=== PATIENT | male | born 1995 | race Two or more races ===

== ENCOUNTER 2024-07-06 18:01 | Emergency (ER) | payer MEDICAID, SELFPAY ==
[2024-07-06 18:02] VITALS: BMI 27.8
[2024-07-06 18:28] VITALS: BP 145/92; PULSE 78; RESP 18; TEMP 37.2; O2SAT 98
--- NOTE | 2024-07-06 18:50 | XR_ITS ---
Examination: CT brain head without contrast. 2-D sagittal coronal reconstructions Date and time of exam:July 06, 2024 1946 hrs. Indications: Headaches nausea vomiting shakiness today CTDI: vol (mGy):52.4 DLP: (mGycm):1116 Technique: Multiple CT axial sections of the brain have been obtained, 5 mm slice thickness. Contrast has not been administered. 2-D sagittal, coronal reconstructions have been obtained Low dose protocols were performed. One or more of the following dose reduction techniques were used; automated exposure control, adjustment of the mA and/or KV according to patient size, use of iterative reconstruction technique. Findings: No significant ventricular enlargement. Intra-axial or extra-axial hemorrhage density is not seen. No mass effect or midline shift Basal cisterns are not remarkable. Fourth ventricle is midline. Cranial vault intact. Impression: Negative for acute hemorrhage, mass effect or midline shift Advise clinical correlation follow-up accordingly
--- NOTE | 2024-07-06 18:51 | PD.EDRME ---
Rapid Medical Screening Exam [facility] Arrival date/time: 07/06/24 18:01 28M with history of alcohol abuse presents to ED with 1 day of ALEX, N/V, and mild/vague ab pain. Chief Complaint: Alcohol Vital signs: Vital Signs Temperature 98.9 F 07/06/24 18:28 Pulse Rate 78 07/06/24 18:28 Respiratory Rate 18 07/06/24 18:28 Blood Pressure 145/92 H 07/06/24 18:28 Pulse Oximetry (%) 98 07/06/24 18:28 Oxygen Delivery Method Room Air 07/06/24 18:28
[2024-07-06] MEDS: DIAZEPAM 5 MG TABLET 10 MG PO (18:56)
[2024-07-06] MEDS: METOCLOPRAMIDE 5 MG TABLET 10 MG PO (18:56)
[2024-07-06 19:14] LABS: Collection Type, Urine Clean Catch
[2024-07-06 19:22] LABS: Basophils # (Auto) 0.1 Thou/mm3 (0.0-0.2); Basophils % (Auto) 1 % (0-2.5); Eosinophils # (Auto) 0.6 Thou/mm3 (0.0-0.5); Eosinophils % (Auto) 6 % (0-10); Hematocrit 44.5 % (41.0-53.0); Hemoglobin 15.5 g/dL (13.5-16.0); Immature Granulocytes % (Auto) 0 % (0-0); Immature Granulocytes Auto 0.04 Thou/mm3 (0.00-0.00); Lymphocytes # (Auto) 1.5 Thou/mm3 (1.0-4.8); Lymphocytes % (Auto) 15 % (10-50); Mean Corpuscular HGB Conc 34.8 g/dl (31.0-37.0); Mean Corpuscular Hemoglobin 31.1 pg (25.0-35.0); Mean Corpuscular Volume 89 fL (80-100); Monocytes # (Auto) 0.9 Thou/mm3 (0.0-0.8); Monocytes % (Auto) 9 % (0-12); Neutrophils # (Auto) 6.6 Thou/mm3 (1.8-7.7); Neutrophils % (Auto) 69 % (37-80); Nucleated Red Blood Cell % 0 /100 WBC (0); Platelet Count 284 Thou/mm3 (140-440); RDW Standard Deviation 44.2 fL (35.1-43.9); Red Blood Count 4.98 Miln/mm3 (4.50-5.90); White Blood Count 9.6 Thou/mm3 (3.8-10.6)
[2024-07-06 19:29] LABS: Bacteria,Urine Rare; Bilirubin,Urine Negative (Negative); Blood,Urine Negative (Negative); Budding Yeast,Urine Present; Clarity,Urine Turbid (Clear/Hazy); Color,Urine Yellow (Lt Yel-Yel); Glucose, Urine Negative (Negative); Ketones,Urine Negative (Negative); Leukocyte Esterase,Urine Negative (Negative); Nitrite,Urine Negative (Negative); Protein,Urine Trace (Neg - Trace); RBC,Urine 6 /hpf (0-3); Squamous Epithelial Cell,Urine < 1 /hpf (0-5); WBC,Urine 5 /hpf (0-5)
[2024-07-06 19:34] LABS: Sperm,Urine Present
[2024-07-06 19:50] LABS: Alanine Aminotransferase 370 U/L (10-49); Albumin, Serum 5.1 gm/dL (3.5-5.0); Albumin/Globulin Ratio 1.8 (1.2-2.2); Alkaline Phosphatase 127 U/L (46-116); Anion Gap 9 (7-16); Aspartate Amino Transferase 138 U/L (0-34); BUN/Creatinine Ratio 9 Ratio (12-20); Bilirubin,Total 0.6 mg/dL (0.3-1.2); Blood Urea Nitrogen 9 mg/dL (9-23); Calcium 9.7 mg/dL (8.3-10.6); Calcium (Corrected) 9.7 mg/dL (8.5-10.1); Carbon Dioxide 27.2 mMol/L (20.0-31.0); Chloride 103 mMol/L (98-107); Estimated Creatinine Clearance 126.7 mL/min (>60); Globulin 2.9 gm/dL (2.3-3.5); Glucose 111 mg/dL (74-106); Lipase 34 U/L (12-53); Osmolality,Calculated 277 (275-295); Potassium 3.9 mMol/L (3.4-5.1); Sodium 139 mMol/L (136-145); eGFR > 60 See Note
[2024-07-06 19:51] LABS: Alcohol, Blood Medical < 3.0 mg/dL (0-10.0)
[2024-07-06 20:30] LABS: Amphetamine/Methamp Scrn,U Negative (Negative); Barbiturate Screen,Urine Negative (Negative); Benzodiazepines Screen,Urine Negative (Negative); Benzoylecgonine Screen, Ur Negative (Negative); Fentanyl Screen,Urine Negative (Negative); Opiate Screen,Urine Negative (Negative); THC Screen,Urine Positive (Negative)
--- NOTE | 2024-07-06 21:50 | PC.NURSE ---
called for pt from lobby/outside, no answerx1 @ [id number]
--- NOTE | 2024-07-06 22:10 | PC.NURSE ---
CALLED PT IN ER AND ER LOBBY AND NO ANSWER AT THIS TIME
--- NOTE | 2024-07-06 22:54 | PC.NURSE ---
CALLED PT IN ER LOBBY AND OUTSIDE OF ER AND NO ANSWER TIME.
== END 2024-07-06 22:56 | disposition left against medical advice (07) ==
PROVIDERS: Physician Assistant; Emergency Provider Emergency Medicine
DX: R51.9 Headache, unspecified (principal); R11.2 Nausea with vomiting, unspecified; R10.9 Unspecified abdominal pain; Z53.29 Procedure and treatment not carried out because of patient's decision for other reasons
CPT/HCPCS: 36415; 70450; 80053; 80307; 80320; 81001; 83690; 85025; 99281; A9270; G0480

== ENCOUNTER 2024-09-08 05:29 | Inpatient (IN) | payer MEDICAID, SELFPAY ==
[2024-09-08] VITALS (13 sets, daily range): BP systolic 134–167; BP diastolic 64–107; PULSE 75–136; RESP 16–24; TEMP 36.8–37.5; O2SAT 97–100; BMI 29.2
[2024-09-08 06:34] LABS: Basophils # (Auto) 0.2 Thou/mm3 (0.0-0.2); Basophils % (Auto) 1 % (0-2.5); Eosinophils # (Auto) 0.3 Thou/mm3 (0.0-0.5); Eosinophils % (Auto) 2 % (0-10); Hematocrit 48.2 % (41.0-53.0); Hemoglobin 16.9 g/dL (13.5-16.0); Immature Granulocytes % (Auto) 0 % (0-0); Immature Granulocytes Auto 0.06 Thou/mm3 (0.00-0.00); Lymphocytes # (Auto) 4.9 Thou/mm3 (1.0-4.8); Lymphocytes % (Auto) 33 % (10-50); Mean Corpuscular HGB Conc 35.1 g/dl (31.0-37.0); Mean Corpuscular Hemoglobin 31.2 pg (25.0-35.0); Mean Corpuscular Volume 89 fL (80-100); Monocytes # (Auto) 1.3 Thou/mm3 (0.0-0.8); Monocytes % (Auto) 9 % (0-12); Neutrophils # (Auto) 8.2 Thou/mm3 (1.8-7.7); Neutrophils % (Auto) 54 % (37-80); Nucleated Red Blood Cell % 0 /100 WBC (0); Platelet Count 323 Thou/mm3 (140-440); RDW Standard Deviation 44.2 fL (35.1-43.9); Red Blood Count 5.41 Miln/mm3 (4.50-5.90)
[2024-09-08] MEDS: LORazepam 2 MG/ML VIAL IVP (06:41)
[2024-09-08 06:52] LABS: Alanine Aminotransferase 312 U/L (10-49); Albumin, Serum 5.3 gm/dL (3.5-5.0); Albumin/Globulin Ratio 1.7 (1.2-2.2); Alkaline Phosphatase 126 U/L (46-116); Anion Gap 16 (7-16); Aspartate Amino Transferase 156 U/L (0-34); BUN/Creatinine Ratio 9 Ratio (12-20); Bilirubin,Total 0.5 mg/dL (0.3-1.2); Blood Urea Nitrogen 10 mg/dL (9-23); Calcium 10.4 mg/dL (8.3-10.6); Calcium (Corrected) 10.4 mg/dL (8.5-10.1); Carbon Dioxide 22.2 mMol/L (20.0-31.0); Chloride 104 mMol/L (98-107); Creatinine (Component) 1.1 mg/dL (0.6-1.3); Estimated Creatinine Clearance 116.7 mL/min (>60); Globulin 3.1 gm/dL (2.3-3.5); Glucose 144 mg/dL (74-106); Osmolality,Calculated 285 (275-295); Sodium 142 mMol/L (136-145); Total Protein 8.4 gm/dL (5.7-8.2); eGFR > 60 See Note
[2024-09-08] MEDS: SODIUM CHLORIDE 0.9% 1000 ML 1,000 ML 999 ML IV (06:57)
--- NOTE | 2024-09-08 07:09 | XR_ITS ---
Examination: AP chest single view Technique one AP portable upright chest single view Exam date and time: September 08, 2024 0715 hrs. Comparison July 26, 2022 Indications: Dyspnea today. Findings: Normal heart size. No pneumonia or pulmonary edema. The osseous structures are intact Impression: No active disease
--- NOTE | 2024-09-08 07:23 | EDNOTE_ITS ---
ED Anxiety RME/HPI General Chief Complaint: Anxiety Stated Complaint: ALCOHOL WITHDRAWAL Time Seen by Provider: 09/08/24 06:18 Arrival date/time: 09/08/24 05:29 RME / HPI RME / HPI narrative: DR. UREÑA MAIN ED EVALUATION: 29 year old male presents to the Emergency Department [facility] from home with complaints of anxiety and bilateral hand cramping. Patient thinks he was having alcohol withdrawals. He usually drinks 6-8 beers a day and report last drink 36 hours ago; however then he did mention taking whiskey last night to the nurse. Denies any known cardiac, kidney, liver, lung problems. No previous abdominal surgeries. Related Data Previous Rx's ?Medication ?Instructions ?Recorded aluminum-mag hydroxide-simethicone 10 ml PO TID PRN in digestion #355 09/13/22 400 mg-400 mg-40 mg/5 mL oral susp mL (Maalox Maximum Strength) famotidine 20 mg tablet 20 mg PO QDAY #30 tabs 09/13 pantoprazole 40 mg tablet,delayed 40 mg PO QDAY #30 ta bs 08/22/23 release (Protonix) chlordiazepoxide HCl 10 mg capsule 10 mg PO Q8H PRN Al cohol withdraw 10/16/23 #30 caps Allergies Allergy/AdvReac Type Severity Reaction Status Date / Time No Known Allergies Allergy Verified 07/06/24 18:04 Review of Systems Review of Systems Systems Reviewed: All systems reviewed, normal except as documented Narrative Review of Systems: GEN: No fever, no chills, no weight loss EYES: No discharge, no visual changes, no pain HEENT: No ear pain, no congestion, no sore throat PULM: No shortness of breath, no cough, no congestion CV: No chest pain, no dyspnea on exertion, no palpitations GI: No nausea, no vomiting, no diarrhea, no pain, no constipation : No frequency, no urgency and no dysuria MUSC/SKEL: + bilateral hand cramping (see HPI), no back pain SKIN: No rash PSYCH: No hallucinations, no depression, anxiety (see HPI) HEME/LYMPH: No easy bleeding or bruising tendencies NEURO: No weakness, no headache Past Medical History Social History SMOKING STATUS: Never smoker SECOND HAND EXPOSURE: No SUBSTANCE USE: does not use ALCOHOL: Current ALCOHOL FREQUENCY: 3 or More Drinks per Day ED Exam Narrative Physical exam: GENERAL APPEARANCE: alert and oriented x 4, well-developed, well-nourished, no acute distress, diaphoretic, tremulous, and appears anxious VITALS: All vitals were reviewed and the pulse ox is 100% on room air, which is normal according to my interpretation. HEENT: Normocephalic, atraumatic; pupils equal, round, reactive to light; EOMI; mucous membranes pink, moist; oropharynx clear NECK: Supple LUNGS: CTABL; no wheezes, no rales, no rhonchi HEART: Heart is tachycardic at 110; regular rhythm; normal S1, S2; no murmurs ABDOMEN: non distended; normal BS; soft, no tenderness, no guarding, no rebound; no masses, no organomegaly, no hernia BACK: no CVA tenderness EXTREMITIES: atraumatic; no edema NEUROLOGIC: tremulous; awake; alert and oriented x4; cranial nerves II-XII grossly intact; no focal sensory or motor deficits PSYCHIATRIC: appropriate mood and affect SKIN: warm, dry, normal color; no rashes Course Quality Measures none Orders Category Date Time Status [facility] N[facility] Specialist NOW Care 09/08/24 06:21 Active XR chest 1V portable Stat Exams 09/08/24 07:09 Taken CBC Stat Lab 09/08/24 06:30 Completed CMP [Comprehensive Metabolic Panel] Stat Lab 09/08/24 06:30 Results Drug Screen,Urine Stat Lab 09/08/24 06:20 Ordered Magnesium Stat Lab 09/08/24 06:30 Results UA, C/S IF [Urinalysis, C/S if Indicated] Stat Lab 09/08/24 06:20 Ordered LORazepam [Ativan Inj] Med 09/08/24 06:21 Discontinued 2 mg IVP X1 ONE Sodium Chloride 0.9% 1000 ml [Ns] 1,000 ml Med 09/08/24 06:53 Active IV 999 mls/hr Vital Signs Vital signs: Vital Signs Pulse Rate 121 H 09/08/24 05:36 Respiratory Rate 24 H 09/08/24 05:36 Blood Pressure 134/107 H 09/08/24 05:36 Pulse Oximetry (%) 100 09/08/24 05:36 Oxygen Delivery Method Room Air 09/08/24 05:36 Anxiety MDM Narrative MDM Narrative: I, Phyllis Zhang, am scribing for and in the presence of Dr. Ureña. Patient data External records reviewed:: [facility] previous records (Reviewed last ED visit dated 04/21/24, discharged with the following: Alcohol abuse) and EMS form Clinical information provided by:: patient and EMS Social determinants that could affect healthcare access:: alcohol use Patient has the following chronic illnesses:: Denies any PMHx, surgeries, daily medications, or known allergies. How is presenting disease/condition affected by chronic disease/condition?: no chronic disease Evaluation data The following diagnostics were reviewed and interpreted by me:: lab results and radiology exam(s) Lab and/or radiology exams considered but not ordered:: none Interpretation Summary: Procedure(s): XR chest 1V portable Accession Number(s): [id number] cc: Stanley Villanueva MD; Chantale Ureña MD~ Examination: AP chest single view Technique one AP portable upright chest single view Exam date and time: September 08, 2024 0715 hrs. Comparison July 26, 2022 Indications: Dyspnea today. Findings: Normal heart size. No pneumonia or pulmonary edema. The osseous structures are intact Impression: No active disease Dictated By: Stanley Villanueva MD Medications / Prescriptions Medications or Prescriptions considered but not ordered:: none Medication administrations:: Medication Administration History Sodium Chloride (Ns) 1,000 mls @ 999 mls/hr IV .Q1H1M ONE Stop: 09/08/24 07:53 Last Admin: 09/08/24 06:57 Dose: 999 mls/hr Documented By: KG Discontinued Medications Lorazepam (Lorazepam 2 Mg/Ml Vial) 2 mg IVP X1 ONE Stop: 09/08/24 06:22 Last Admin: 09/08/24 06:41 Dose: 2 mg Documented By: KG Consultations Consultation(s) initiated? (list below): Yes Consultation #1 (Physician, Specialty, Details): Discussed test HPI, PMHx, lab, radiology results and/or management with hospitalist. Will admit for further evaluation and management. Accepts patient for admission. Time: 08:30 Diagnosis Differential diagnosis anxiety: panic disorder, acute anxiety and other (alcohol abuse, alcohol withdrawals) Most likely diagnosis given after review of the tests above:: Alcohol withdrawal Admission Indicated Admission indicated?: indicated Admission Request Was there a request for admission?: Yes Admission Attestation Admission request attestation: Discussed case with [] from Hospitalist service regarding admission. Discussed patients ED course, exam findings, labs, and radiology results. The Hospitalist [agrees,declines] to accept the patient for admission. Disposition Plan Disposition Plan: Admit Discharge Plan Plan Patient Disposition: Admit Acute Care w/in Hospital Problem List Clinical Impression: Alcohol withdrawal
[2024-09-08 07:27] LABS: Magnesium 1.9 mg/dL (1.6-2.6)
[2024-09-08] MEDS: THIAMINE 100 MG TABLET PO ×2 (10:30→21:03)
[2024-09-08] MEDS: LORazepam 0.5 MG TABLET 1 MG PO ×2 (10:31→18:52)
[2024-09-08] MEDS: FOLIC ACID 1 MG TABLET PO ×2 (10:31→21:03)
--- NOTE | 2024-09-08 11:32 | XR_ITS ---
Examination: Abdomen sonogram, complete Date and time of exam: September 08, 2024 1308 hours INDICATIONS: Elevated liver function tests on laboratory examination today. Technique: Multiple real-time grayscale transabdominal sonographic images of the abdomen have been obtained. Findings: Normal gallbladder Normal common bile duct 0.4 cm Pancreatic head 1.9 cm Aorta not enlarged Liver 17.2 cm fatty infiltration no focal liver lesions Normal hepatopedal portal venous flow Patent IVC Right kidney 10.1 x 5.8 x 7.0 cm renal cortex 1.6 cm Left kidney 10.9 x 5.4 x 5.4 cm renal cortex 1.7 cm Mild renal parenchymal scar formation Spleen 12.9 cm IMPRESSION: Normal gallbladder Mild hepatomegaly fatty liver
[2024-09-08 12:18] LABS: Collection Type, Urine Clean Catch; Squamous Epithelial Cell,Urine 0 /hpf (0-5)
[2024-09-08 12:27] LABS: Bilirubin,Urine Negative (Negative); Blood,Urine Negative (Negative); Clarity,Urine Clear (Clear/Hazy); Color,Urine Yellow (Lt Yel-Yel); Culture Indicated,Urine Not Indicated; Glucose, Urine Negative (Negative); Ketones,Urine 1+ (Negative); Leukocyte Esterase,Urine Negative (Negative); Nitrite,Urine Negative (Negative); PH,Urine 8.5 (5.0-7.0); Protein,Urine 1+ (Neg - Trace); RBC,Urine 2 /hpf (0-3); Specific Gravity,Urine 1.026 (1.001-1.035); WBC,Urine 1 /hpf (0-5)
[2024-09-08 12:36] LABS: Amphetamine/Methamp Scrn,U Negative (Negative); Barbiturate Screen,Urine Negative (Negative); Benzodiazepines Screen,Urine Negative (Negative); Benzoylecgonine Screen, Ur Negative (Negative); Fentanyl Screen,Urine Negative (Negative); Opiate Screen,Urine Negative (Negative); THC Screen,Urine Positive (Negative)
[2024-09-08 12:36] LABS: Hepatitis A Antibody IgM Non Reactive (Non React); Hepatitis B Core Antibody IgM Non Reactive (Non React); Hepatitis B Surface Antigen Non Reactive (Non React); Hepatitis C Antibody Non Reactive (Non React)
[2024-09-08] MEDS: ONDANSETRON INJ 2 MG/ML INJ 2 ML 4 MG IV ×2 (12:48→18:56)
[2024-09-08 13:06] LABS: Alcohol, Urine Negative (Negative)
--- NOTE | 2024-09-08 13:53 | ESHP_ITS ---
<Statement entered by Jose Manuel Moraes MD - 09/09/24 14:53> I discussed with and supervised the pharmacy grad intern physician involved in the care of this patient. Patient assessment and plan was discussed with entire medicine team, including my attending. I agree with the assessment and plan as documented by pharmacy grad intern doctor. Patient care was discussed with my attending physician Dr.Bishwakarma Jose Manuel Moraes, PGY-2 Documentation for date of: 09/08/24 HPI History of Present Illness Chief complaint: Shaking, sweating and vomiting History of present illness: 29-year-old male with past medical history of alcohol use disorder presented to the ED on 09/08 after he started developing shakiness, sweating and bilious vomiting. Per patient, he has been drinking excessively for the past 3 years; moreover, roughly 6-8 beers daily. Patient's last drink was on 09/07 when he had to 500 mL bottles of whiskey and 2 tall cans of beer. During the night, patient states that at first he developed hand locking symptoms where he could not open his hands followed by shakiness and sweating. Patient states that he has attempted to quit alcohol in the past and has been successful on and off for couple years but at most has quit for about 30 days. Patient has never experienced withdrawal symptoms this bad in the past; moreover, he is anxious and would like to quit drinking alcohol. Patient states that in the past he was given gabapentin for anxiety but only took medication 2 or 3 times. During these episodes, patient never lost consciousness, was never confused and denies falling. Patient also otherwise denies any concerning symptoms such as headache, changes in vision, hallucinations, chest pain, shortness of breath, hematuria, hematochezia, melena or hematemesis. Medical history: As listed above Surgical history: Denies any surgeries Allergies: NKDA Medications: None Family history: Noncontributory Social history: Patient has excessive alcohol use disorder with greater than 2 years of daily alcohol use, roughly 6-8 beers a day. Smokes marijuana but denies tobacco smoking ROS: All 12 systems assessed and the patient denies unless otherwise stated in HPI In the ED, patient presented hypertensive with blood pressure 134/107, tachycardic with heart rate 121, tachypneic with respiratory 24, afebrile satting 100 on room air. At that time, patient's CIWA score was 12 and the patient was given 2 mg IV Ativan which subsided his symptoms of shakiness and diaphoresis. Pertinent lab findings include WBC of 15, hemoglobin 16.9, corrected calcium 10.4, AST 156, ALT 312, alk phos 126, total CK2 142, urinalysis negative for any signs of infection, chest x-ray with no active disease and ultrasound abdomen pelvis showing metabolic associated liver disease. Patient will be admitted for alcohol withdrawal symptoms and CIWA protocol will be initiated. Exam Vital Signs Temp Pulse Resp BP Pulse Ox O2 Del Method 99.5 F 107 H 19 144/68 H 97 Room Air 09/08/24 12:00 09/08/24 12:00 09/08/24 12:00 09/08/24 12:00 09/08/24 12:00 09/08/24 12:00 Narrative Exam Physical Exam: GENERAL: Awake, answering questions appropriately, appears stated age, no jaundice HEENT: NC/AT. Moist mucosa. PERRLA/EOMI. No scleral icterus CARDIO: Heart RRR, no obvious murmurs, no JVD. PULM: No coughing or visible SOB. Lungs CTA B/L. GI: Abdomen soft, NT/ND, +BS. SKIN/MSK/EXT: No asterixis. No wounds/discoloration/rashes/edema/amputations. +Pedal pulses present B/L. NEURO: Oriented x3, Moves extremities x4, no focal neurological deficits Results: Labs 09/11/24 05:20 09/11/24 05:20 Labs: Short CBC 09/08/24 Range/Units 06:30 WBC 15.0 H (3.8-10.6) Thou/mm3 Hgb 16.9 H (13.5-16.0) g/dL Hct 48.2 (41.0-53.0) % Plt Count 323 (140-440) Thou/mm3 BMP 09/08/24 06:30 Sodium 142 Potassium 4.0 Chloride 104 Carbon Dioxide 22.2 BUN 10 Creatinine 1.1 Glucose 144 H Calcium 10.4 Liver Function 09/08/24 Range/Units 06:30 Total Bilirubin 0.5 (0.3-1.2) mg/dL AST 156 H (0-34) U/L ALT 312 H (10-49) U/L Alkaline Phosphatase 126 H (46-116) U/L Albumin 5.3 H (3.5-5.0) gm/dL Urine 09/08/24 Range/Units 12:11 Urine Color Yellow (Lt Yel-Yel) Urine Clarity Clear (Clear/Hazy) Urine pH 8.5 H (5.0-7.0) Ur Specific [place] 1.026 (1.001-1.035) Urine Protein 1+ A (Neg - Trace) Urine Glucose (UA) Negative (Negative) Quality Measures Quality Measures none Medications Home Medications and Allergies Allergies Allergy/AdvReac Type Severity Reaction Status Date / Time No Known Allergies Allergy Verified 07/06/24 18:04 Visit Medications Acetaminophen (Acetaminophen 325 Mg Tablet) 650 mg PO Q6H PRN PRN Reason: Pain 1-3 and/or Fever >100.1 Stop: 10/08/24 08:37 Folic Acid (Folic Acid 1 Mg Tablet) 1 mg PO BID [facility] Stop: 09/13/24 08:59 Last Admin: 09/08/24 10:31 Dose: 1 mg Heparin Sodium (Porcine) (Heparin Sod Inj 5000 Unit/Ml Vial) 5,000 unit SC Q12HR [facility] Stop: 09/22/24 08:59 Last Admin: 09/08/24 10:34 Dose: Not Given Lorazepam (Lorazepam 0.5 Mg Tablet) 0.5 mg PO Q4HR PRN PRN Reason: CIWA Score 2-6 Stop: 09/13/24 08:37 Lorazepam (Lorazepam 0.5 Mg Tablet) 2 mg PO Q4HR PRN PRN Reason: CIWA SCORE 11-13 Stop: 09/13/24 08:37 Lorazepam (Lorazepam 2 Mg/Ml Vial) 1 mg IV Q2HR PRN PRN Reason: CIWA SCORE 14-19 Stop: 09/13/24 08:37 Lorazepam (Lorazepam 2 Mg/Ml Vial) 2 mg IV Q2HR PRN PRN Reason: CIWA SCORE 20-25 Stop: 09/13/24 08:37 Lorazepam (Lorazepam 0.5 Mg Tablet) 1 mg PO Q4HR PRN PRN Reason: CIWA SCORE 7-10 Stop: 09/13/24 08:37 Last Admin: 09/08/24 10:31 Dose: 1 mg Ondansetron HCl (Ondansetron Inj 2 Mg/Ml Inj 2 Ml) 4 mg IV Q6H PRN; Protocol PRN Reason: NAUSEA OR VOMITING Stop: 10/08/24 08:37 Last Admin: 09/08/24 12:48 Dose: 4 mg Sennosides (Senna Tablet) 1 tab PO QDAY PRN; Protocol PRN Reason: constipation Stop: 10/08/24 08:37 Thiamine HCl (Thiamine 100 Mg Tablet) 100 mg PO BID [facility] Stop: 09/13/24 08:59 Last Admin: 09/08/24 10:30 Dose: 100 mg Discontinued Medications Sodium Chloride (Ns) 1,000 mls @ 999 mls/hr IV .Q1H1M ONE Stop: 09/08/24 07:53 Last Infusion: 09/08/24 08:50 Dose: Infused Lorazepam (Lorazepam 2 Mg/Ml Vial) 2 mg IVP X1 ONE Stop: 09/08/24 06:22 Last Admin: 09/08/24 06:41 Dose: 2 mg Assessment & Plan Plan 29-year-old male with past medical history of alcohol use disorder presented after he started developing shakiness, sweating and bilious vomiting will be admitted for alcohol withdrawal symptoms and CIWA protocol will be initiated. #Alcohol withdrawal #Alcohol use disorder Patient has extensive history of alcohol use disorder, as listed in the HPI Patient would like to quit drinking alcohol and has attempted in the past with 30 days being the maximum number of days being sober Patient CIWA score in the ED was 12, given 2 mg IV Ativan which subsided symptoms of shakiness and diaphoresis Plan: On CIWA protocol Thiamine and folate supplementation #Elevated liver enzymes #Metabolic associated liver disorder Patient presenting with elevated liver enzymes, AST 156, ALT 312, alk phos 126 Ultrasound abdomen shows metabolic associated liver disease but no signs of cirrhosis Patient does not have any clinical findings of cirrhosis, no asterixis, spider angiomas, caput medusa or hepatosplenomegaly on exam Plan: Hepatitis panel ordered Monitor with morning labs #Hypertension Likely secondary to acute withdrawal status Patient has no history of hypertension, does not take any antihypertensives at home Presented to the ED with systolic in 130s and diastolic in the 110s Plan: Will continue to monitor Medical Management: Lines: PIV Diet: Regular Bowel: Senna as needed GI prophylaxis: Not needed DVT prophylaxis: Heparin subcu Dispo: Monitoring for withdrawal symptoms, on CIWA protocol Code: Full Patient seen and assessed with attending Dr. Muller and senior resident Dr. Dimitry Hernandes, PGY-1 Attending Provider Attestation/Addendum I attest that I was physically present for the evaluation, physical examination, lab and imaging review of the patient with the residents. I discussed the case with the residents and agree with the findings and plans of care as documented above. Reta Muller MD
[2024-09-08] MEDS: LORazepam 0.5 MG TABLET PO (15:17)
--- NOTE | 2024-09-08 19:41 | PC.NURSE ---
Assumed care of pt. Pt awake, alert, no signs of distress noted. Pt is sitting upright watching TV with spouse at bedside. Bed locked in lowest position, call light within reach.
[2024-09-09] VITALS (7 sets, daily range): BP systolic 128–151; BP diastolic 71–96; PULSE 61–89; RESP 16–19; TEMP 36.2–36.9; O2SAT 96–99; BMI 29.0
[2024-09-09] MEDS: LORazepam 0.5 MG TABLET PO (01:56)
[2024-09-09] MEDS: ACETAMINOPHEN 325 MG TABLET 650 MG PO (01:56)
[2024-09-09 05:37] LABS: Basophils # (Auto) 0.1 Thou/mm3 (0.0-0.2); Basophils % (Auto) 1 % (0-2.5); Eosinophils # (Auto) 0.3 Thou/mm3 (0.0-0.5); Eosinophils % (Auto) 3 % (0-10); Hematocrit 44.1 % (41.0-53.0); Immature Granulocytes % (Auto) 0 % (0-0); Immature Granulocytes Auto 0.01 Thou/mm3 (0.00-0.00); Lymphocytes # (Auto) 1.5 Thou/mm3 (1.0-4.8); Lymphocytes % (Auto) 17 % (10-50); Mean Corpuscular Hemoglobin 30.8 pg (25.0-35.0); Mean Corpuscular Volume 91 fL (80-100); Monocytes # (Auto) 0.8 Thou/mm3 (0.0-0.8); Monocytes % (Auto) 10 % (0-12); Neutrophils # (Auto) 5.9 Thou/mm3 (1.8-7.7); Neutrophils % (Auto) 69 % (37-80); Nucleated Red Blood Cell % 0 /100 WBC (0); Platelet Count 229 Thou/mm3 (140-440); RDW Standard Deviation 43.4 fL (35.1-43.9); Red Blood Count 4.87 Miln/mm3 (4.50-5.90); White Blood Count 8.5 Thou/mm3 (3.8-10.6)
[2024-09-09 06:24] LABS: Alanine Aminotransferase 226 U/L (10-49); Albumin, Serum 4.4 gm/dL (3.5-5.0); Albumin/Globulin Ratio 1.6 (1.2-2.2); Alkaline Phosphatase 105 U/L (46-116); Anion Gap 8 (7-16); Aspartate Amino Transferase 127 U/L (0-34); BUN/Creatinine Ratio 13 Ratio (12-20); Bilirubin,Total 1.3 mg/dL (0.3-1.2); Blood Urea Nitrogen 14 mg/dL (9-23); Calcium 9.7 mg/dL (8.3-10.6); Calcium (Corrected) 9.7 mg/dL (8.5-10.1); Carbon Dioxide 27.1 mMol/L (20.0-31.0); Chloride 105 mMol/L (98-107); Creatinine (Component) 1.1 mg/dL (0.6-1.3); Estimated Creatinine Clearance 116.2 mL/min (>60); Globulin 2.8 gm/dL (2.3-3.5); Glucose 104 mg/dL (74-106); Osmolality,Calculated 279 (275-295); Sodium 140 mMol/L (136-145); Total Protein 7.2 gm/dL (5.7-8.2); eGFR > 60 See Note
[2024-09-09] MEDS: LORazepam 0.5 MG TABLET 1 MG PO ×3 (07:23→20:35)
[2024-09-09] MEDS: THIAMINE 100 MG TABLET PO ×2 (08:45→20:35)
[2024-09-09] MEDS: FOLIC ACID 1 MG TABLET PO ×2 (08:46→20:35)
--- NOTE | 2024-09-09 14:16 | ESPR_ITS ---
<Statement entered by Jose Manuel Moraes MD - 09/09/24 18:21> I discussed with and supervised the civil engineering intern physician involved in the care of this patient. Patient assessment and plan was discussed with entire medicine team, including my attending. I agree with the assessment and plan as documented by civil engineering intern doctor. Patient care was discussed with my attending physician Dr. Gaby Moraes, PGY-2 Documentation for date of: 09/09/24 Subjective Subjective Interval history: 09/09/2024: Overnight patient's CIWA score ranged from 4-7 and he was given a total of 6 mg p.o. Ativan since admission. Patient seen and examined in hospital bed reports near complete resolution of presenting symptoms and generally feels well other than some anxiety. Patient denies any alcohol withdrawal symptoms such as diaphoresis, tremulousness, auditory and visual hallucinations or agitation. Patient was explained that he will benefit from staying overnight to monitor for any withdrawal symptoms. Patient is in agreement and furthermore states that he would like to quit drinking alcohol. Exam Vital Signs Temp Pulse Resp BP Pulse Ox O2 Del Method FiO2 97.1 F 67 18 142/83 H 97 Room Air 98 09/09/24 08:00 09/09/24 08:00 09/09/24 08:00 09/09/24 08:00 09/09/24 04:00 09/09/24 08:00 09/09/24 08:00 Narrative Exam Physical Exam: GENERAL: Awake, answering questions appropriately, appears stated age, no jaundice HEENT: NC/AT. Moist mucosa. PERRLA/EOMI. No scleral icterus CARDIO: Heart RRR, no obvious murmurs, no JVD. PULM: No coughing or visible SOB. Lungs CTA B/L. GI: Abdomen soft, NT/ND, +BS. SKIN/MSK/EXT: No asterixis. No wounds/discoloration/rashes/edema/amputations. +Pedal pulses present B/L. NEURO: Oriented x3, Moves extremities x4, no focal neurological deficits Objective Labs 09/11/24 05:20 09/11/24 05:20 Labs: Laboratory Results - last 24 hr 09/09/24 05:06 WBC 8.5 D RBC 4.87 Hgb 15.0 Hct 44.1 MCV 91 MCH 30.8 MCHC 34.0 RDW Std Deviation 43.4 Plt Count 229 D Neut % (Auto) 69 Lymph % (Auto) 17 [place] % (Auto) 10 Eos % (Auto) 3 Baso % (Auto) 1 Neut # (Auto) 5.9 Lymph # (Auto) 1.5 [place] # (Auto) 0.8 Eos # (Auto) 0.3 Baso # (Auto) 0.1 Immature Gran # (Auto) 0.01 H Absolute Nucleated RBC 0.00 Immature Gran % 0 Nucleated RBC % 0 Sodium 140 Potassium 4.0 Chloride 105 Carbon Dioxide 27.1 Anion Gap 8 BUN 14 Creatinine 1.1 Estim Creat Clear Calc 116.2 eGFR > 60 BUN/Creatinine Ratio 13 Glucose 104 Calculated Osmolality 279 Calcium 9.7 Corrected Calcium 9.7 Total Bilirubin 1.3 H D AST 127 H ALT 226 H Alkaline Phosphatase 105 D Total Protein 7.2 Albumin 4.4 D Globulin 2.8 Albumin/Globulin Ratio 1.6 Quality Measures Quality Measures none Assessment & Plan Assessment Current Active Medications: Generic Name Dose Route Start Last Admin Trade Name Freq PRN Reason Stop Dose Admin Acetaminophen 650 mg 09/08/24 08:38 09/09/24 01:56 Acetaminophen 325 Mg Tablet PO 10/08/24 08:37 650 mg Q6H PRN Administration Pain 1-3 and/or Fever >100.1 Folic Acid 1 mg 09/08/24 09:00 09/09/24 08:46 Folic Acid 1 Mg Tablet PO 09/13/24 08:59 1 mg BID JOSSELYN Administration Gabapentin 300 mg 09/09/24 21:00 Gabapentin 100 Mg Capsule PO 10/09/24 20:59 BID JOSSELYN Heparin Sodium (Porcine) 5,000 unit 09/08/24 09:00 09/09/24 08:46 Heparin Sod Inj 5000 Unit/Ml Vial SC 09/22/24 08:59 Not Given Q12HR JOSSELYN Lorazepam 0.5 mg 09/08/24 08:38 09/09/24 01:56 Lorazepam 0.5 Mg Tablet PO 09/13/24 08:37 0.5 mg Q4HR PRN Administration CIWA Score 2-6 Lorazepam 1 mg 09/08/24 08:38 Lorazepam 2 Mg/Ml Vial IV 09/13/24 08:37 Q2HR PRN CIWA SCORE 14-19 Lorazepam 2 mg 09/08/24 08:38 Lorazepam 2 Mg/Ml Vial IV 09/13/24 08:37 Q2HR PRN CIWA SCORE 20-25 Lorazepam 1 mg 09/09/24 13:39 Lorazepam 0.5 Mg Tablet PO 09/13/24 08:37 Q4HR PRN CIWA SCORE 7-10 Lorazepam 2 mg 09/09/24 13:40 Lorazepam 0.5 Mg Tablet PO 09/13/24 08:37 Q4HR PRN CIWA SCORE 11-13 Ondansetron HCl 4 mg 09/08/24 08:38 09/08/24 18:56 Ondansetron Inj 2 Mg/Ml Inj 2 Ml IV 10/08/24 08:37 4 mg Q6H PRN Administration NAUSEA OR VOMITING Protocol Sennosides 1 tab 09/08/24 08:38 Senna Tablet PO 10/08/24 08:37 QDAY PRN constipation Protocol Thiamine HCl 100 mg 09/08/24 09:00 09/09/24 08:45 Thiamine 100 Mg Tablet PO 09/13/24 08:59 100 mg BID JOSSELYN Administration Plan 29-year-old male with past medical history of alcohol use disorder presented after he started developing shakiness, sweating and bilious vomiting will be admitted for alcohol withdrawal symptoms and CIWA protocol will be initiated. #Alcohol withdrawal #Alcohol use disorder Patient has extensive history of alcohol use disorder, as listed in the HPI Patient would like to quit drinking alcohol and has attempted in the past with 30 days being the maximum number of days being sober Patient CIWA score in the ED was 12, given 2 mg IV Ativan which subsided symptoms of shakiness and diaphoresis Plan: On CIWA protocol Thiamine and folate supplementation #Elevated liver enzymes, downtrending #Metabolic dysfunction-associated steatotic liver disease (MASLD) Patient presenting with elevated liver enzymes, AST 156, ALT 312, alk phos 126 Ultrasound abdomen shows metabolic associated liver disease but no signs of cirrhosis Patient does not have any clinical findings of cirrhosis, no asterixis, spider angiomas, caput medusa or hepatosplenomegaly on exam Hepatitis panel ordered was negative Plan: Monitor with morning labs #Hypertension Likely secondary to acute withdrawal status Patient has no history of hypertension, does not take any antihypertensives at home Presented to the ED with systolic in 130s and diastolic in the 110s Remains hypertensive on 07/09; will monitor and consider discharging with antihypertensive Plan: Will continue to monitor Medical Management: Lines: PIV Diet: Regular Bowel: Senna as needed GI prophylaxis: Not needed DVT prophylaxis: Heparin subcu Dispo: Monitoring for withdrawal symptoms, on CIWA protocol Code: Full Patient seen and assessed with attending Dr. Muller and senior resident Dr. Dimitry Hernandes, PGY-1 Attending Provider Attestation/Addendum I attest that I was physically present for the evaluation, physical examination, lab and imaging review of the patient with the residents. I discussed the case with the residents and agree with the findings and plans of care as documented above. Reta Muller MD
[2024-09-09] MEDS: GABAPENTIN 100 MG CAPSULE 300 MG PO (20:35)
[2024-09-10] VITALS: BP 149/84; PULSE 66; PULSE 77; RESP 14; TEMP 36.1; O2SAT 99
[2024-09-10 04:00] VITALS: BP 149/97; PULSE 58; PULSE 64; RESP 12; TEMP 36.4; O2SAT 98
[2024-09-10 05:40] VITALS: BMI 29.1
[2024-09-10 05:56] LABS: Basophils # (Auto) 0.1 Thou/mm3 (0.0-0.2); Basophils % (Auto) 1 % (0-2.5); Eosinophils # (Auto) 0.3 Thou/mm3 (0.0-0.5); Eosinophils % (Auto) 4 % (0-10); Hematocrit 44.2 % (41.0-53.0); Hemoglobin 15.6 g/dL (13.5-16.0); Immature Granulocytes % (Auto) 0 % (0-0); Immature Granulocytes Auto 0.01 Thou/mm3 (0.00-0.00); Lymphocytes # (Auto) 1.3 Thou/mm3 (1.0-4.8); Lymphocytes % (Auto) 18 % (10-50); Mean Corpuscular HGB Conc 35.3 g/dl (31.0-37.0); Mean Corpuscular Hemoglobin 31.7 pg (25.0-35.0); Mean Corpuscular Volume 90 fL (80-100); Monocytes # (Auto) 0.6 Thou/mm3 (0.0-0.8); Monocytes % (Auto) 8 % (0-12); Neutrophils # (Auto) 5.2 Thou/mm3 (1.8-7.7); Neutrophils % (Auto) 70 % (37-80); Nucleated Red Blood Cell % 0 /100 WBC (0); Platelet Count 171 Thou/mm3 (140-440); Red Blood Count 4.92 Miln/mm3 (4.50-5.90); White Blood Count 7.5 Thou/mm3 (3.8-10.6)
[2024-09-10 06:21] LABS: Alanine Aminotransferase 364 U/L (10-49); Albumin, Serum 4.5 gm/dL (3.5-5.0); Albumin/Globulin Ratio 1.6 (1.2-2.2); Alkaline Phosphatase 107 U/L (46-116); Anion Gap 8 (7-16); Aspartate Amino Transferase 323 U/L (0-34); BUN/Creatinine Ratio 14 Ratio (12-20); Bilirubin,Total 1.6 mg/dL (0.3-1.2); Blood Urea Nitrogen 14 mg/dL (9-23); Calcium 9.8 mg/dL (8.3-10.6); Calcium (Corrected) 9.8 mg/dL (8.5-10.1); Carbon Dioxide 28.1 mMol/L (20.0-31.0); Chloride 103 mMol/L (98-107); Estimated Creatinine Clearance 128.1 mL/min (>60); Globulin 2.9 gm/dL (2.3-3.5); Glucose 97 mg/dL (74-106); Magnesium 2.1 mg/dL (1.6-2.6); Osmolality,Calculated 278 (275-295); Phosphorous 3.5 mg/dL (2.4-5.1); Sodium 139 mMol/L (136-145); Total Protein 7.4 gm/dL (5.7-8.2); eGFR > 60 See Note
[2024-09-10 08:00] VITALS: BP 146/78; PULSE 61; PULSE 78; RESP 16; TEMP 36.6; O2SAT 95
[2024-09-10] MEDS: THIAMINE 100 MG TABLET PO ×2 (08:37→20:41)
[2024-09-10] MEDS: FOLIC ACID 1 MG TABLET PO ×2 (08:37→20:41)
[2024-09-10] MEDS: GABAPENTIN 100 MG CAPSULE 300 MG PO ×2 (08:37→20:41)
--- NOTE | 2024-09-10 09:11 | PC.SS ---
Follow up note: Pt is on CWAL protocol. Pt will will return home upon d.c.
--- NOTE | 2024-09-10 10:18 | PC.SS ---
Late note 09-09-24: SS met with patient regarding his d/c plan.? Pt is alert/oriented.? Pt was admitted for Alcohol Withdraw.? Pt confirmed demographic and contact information is correct on facesheet.? Pt resides with and kids.? 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 Pt ambulates independently without assistance or DME.? Pt is ok with all ADLs.? 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 ?Pt explained he has been consuming alcohol everyday for 2 years but has stopped 3 times for 30 days during the 2 years.? Pt states resumes when he is stressed from work.? SS offered community resource and pt was receptive.? SS provided pt with Alcohol & Other Drug Prevention Treatment and Recovery Service form, [facility], AOD, [facility], Alcohol and Drug Help Line, AA Meeting Directory Form, and the Community Resource List.? Patient?s pharmacy of choice is [facility] on [address].? Pt named his Aleyda Tee medical decision maker if she is unable.? Patient?s choice is to return home upon d/c.? Pt states he is not diabetic and is not on dialysis.? ?Pt states he followed up with PCP in July. D/C plan:? Return home Next of Kin:? Aleyda Vance, phone# [phone] PCP:? Dr. Sameer Rollins from [facility] Address:? Correct on facesheet
--- NOTE | 2024-09-10 11:40 | CHAP ---
Patient was visited by the Spiritual Care Volunteer who prayed for them. (Volunteer was in the hospital from 10:26-11:40)
[2024-09-10 12:00] VITALS: BP 160/74; PULSE 73; PULSE 77; RESP 12; TEMP 36.6; O2SAT 99
[2024-09-10] MEDS: LORazepam 0.5 MG TABLET 1 MG PO ×2 (12:15→19:18)
--- NOTE | 2024-09-10 14:33 | ESPR_ITS ---
<Statement entered by Jose Manuel Moraes MD - 09/11/24 16:55> I discussed with and supervised the event planning intern physician involved in the care of this patient. Patient assessment and plan was discussed with entire medicine team, including my attending. I agree with the assessment and plan as documented by event planning intern doctor. Patient care was discussed with my attending physician Dr. Yohana Moraes, PGY-2 Documentation for date of: 09/10/24 Subjective Subjective Interval history: 09/10/2024: No acute overnight events to report. Patient required 3.5 mg of Ativan overnight and CIWA scores remain between 0 and 1. This morning, patient seen and examined in hospital bed remains asymptomatic other than some persistent hypertension. Patient explained that he might benefit from antihypertensive; however, he states that he usually is hypertensive when he is drinking. As the patient is thinking of quitting he is not interested in starting antihypertensive at this time. Will include in discharge summary that the patient could benefit from close PCP follow-up for blood pressure. Exam Vital Signs Temp Pulse Resp BP Pulse Ox O2 Del Method FiO2 97.9 F 77 12 160/74 H 99 Room Air 98 09/10/24 12:00 09/10/24 12:00 09/10/24 12:00 09/10/24 12:00 09/10/24 12:00 09/10/24 12:09/09/24 08:00 Narrative Exam Physical Exam: GENERAL: Awake, answering questions appropriately, appears stated age, no jaundice HEENT: NC/AT. Moist mucosa. PERRLA/EOMI. No scleral icterus CARDIO: Heart RRR, no obvious murmurs, no JVD. PULM: No coughing or visible SOB. Lungs CTA B/L. GI: Abdomen soft, NT/ND, +BS. SKIN/MSK/EXT: No asterixis. No wounds/discoloration/rashes/edema/amputations. +Pedal pulses present B/L. NEURO: Oriented x3, Moves extremities x4, no focal neurological deficits Objective Labs 09/11/24 05:20 09/11/24 05:20 Labs: Laboratory Results - last 24 hr 09/10/24 05:02 WBC 7.5 RBC 4.92 Hgb 15.6 Hct 44.2 MCV 90 MCH 31.7 MCHC 35.3 RDW Std Deviation 42.0 Plt Count 171 D Neut % (Auto) 70 Lymph % (Auto) 18 [place] % (Auto) 8 Eos % (Auto) 4 Baso % (Auto) 1 Neut # (Auto) 5.2 Lymph # (Auto) 1.3 [place] # (Auto) 0.6 Eos # (Auto) 0.3 Baso # (Auto) 0.1 Immature Gran # (Auto) 0.01 H Absolute Nucleated RBC 0.00 Immature Gran % 0 Nucleated RBC % 0 Sodium 139 Potassium 4.0 Chloride 103 Carbon Dioxide 28.1 Anion Gap 8 BUN 14 Creatinine 1.0 Estim Creat Clear Calc 128.1 eGFR > 60 BUN/Creatinine Ratio 14 Glucose 97 Calculated Osmolality 278 Calcium 9.8 Corrected Calcium 9.8 Phosphorus 3.5 Magnesium 2.1 Total Bilirubin 1.6 H AST 323 H ALT 364 H Alkaline Phosphatase 107 Total Protein 7.4 Albumin 4.5 Globulin 2.9 Albumin/Globulin Ratio 1.6 Quality Measures Quality Measures none Assessment & Plan Assessment Current Active Medications: Generic Name Dose Route Start Last Admin Trade Name Freq PRN Reason Stop Dose Admin Acetaminophen 650 mg 09/08/24 08:38 09/09/24 01:56 Acetaminophen 325 Mg Tablet PO 10/08/24 08:37 650 mg Q6H PRN Administration Pain 1-3 and/or Fever >100.1 Folic Acid 1 mg 09/08/24 09:00 09/10/24 08:37 Folic Acid 1 Mg Tablet PO 09/13/24 08:59 1 mg BID JOSSELYN Administration Gabapentin 300 mg 09/09/24 21:00 09/10/24 08:37 Gabapentin 100 Mg Capsule PO 10/09/24 20:59 300 mg BID JOSSELYN Administration Heparin Sodium (Porcine) 5,000 unit 09/08/24 09:00 09/10/24 08:30 Heparin Sod Inj 5000 Unit/Ml Vial SC 09/22/24 08:59 Not Given Q12HR JOSSELYN Lorazepam 0.5 mg 09/08/24 08:38 09/09/24 01:56 Lorazepam 0.5 Mg Tablet PO 09/13/24 08:37 0.5 mg Q4HR PRN Administration CIWA Score 2-6 Lorazepam 1 mg 09/08/24 08:38 Lorazepam 2 Mg/Ml Vial IV 09/13/24 08:37 Q2HR PRN CIWA SCORE 14-19 Lorazepam 2 mg 09/08/24 08:38 Lorazepam 2 Mg/Ml Vial IV 09/13/24 08:37 Q2HR PRN CIWA SCORE 20-25 Lorazepam 2 mg 09/09/24 13:40 Lorazepam 0.5 Mg Tablet PO 09/13/24 08:37 Q4HR PRN CIWA SCORE 11-13 Lorazepam 1 mg 09/10/24 10:04 09/10/24 12:15 Lorazepam 0.5 Mg Tablet PO 09/13/24 08:37 1 mg Q4HR PRN Administration CIWA SCORE 7-10 Ondansetron HCl 4 mg 09/08/24 08:38 09/08/24 18:56 Ondansetron Inj 2 Mg/Ml Inj 2 Ml IV 10/08/24 08:37 4 mg Q6H PRN Administration NAUSEA OR VOMITING Protocol Sennosides 1 tab 09/08/24 08:38 Senna Tablet PO 10/08/24 08:37 QDAY PRN constipation Protocol Thiamine HCl 100 mg 09/08/24 09:00 09/10/24 08:37 Thiamine 100 Mg Tablet PO 09/13/24 08:59 100 mg BID JOSSELYN Administration Plan 29-year-old male with past medical history of alcohol use disorder presented after he started developing shakiness, sweating and bilious vomiting will be admitted for alcohol withdrawal symptoms and CIWA protocol will be initiated. #Alcohol withdrawal #Alcohol use disorder Patient has extensive history of alcohol use disorder, as listed in the HPI Patient would like to quit drinking alcohol and has attempted in the past with 30 days being the maximum number of days being sober Patient CIWA score in the ED was 12, given 2 mg IV Ativan which subsided symptoms of shakiness and diaphoresis Patient CIWA have been between 0 and 1 on 09/09 - 09/10; remains asymptomatic. Patient has received a total of 3.5 mg of Ativan over 24 hours Plan: On CIWA protocol Thiamine and folate supplementation #Elevated liver enzymes, uptrending #Metabolic dysfunction-associated steatotic liver disease (MASLD) Patient presenting with elevated liver enzymes, AST 156, ALT 312, alk phos 126 Ultrasound abdomen shows metabolic associated liver disease but no signs of cirrhosis Patient does not have any clinical findings of cirrhosis, no asterixis, spider angiomas, caput medusa or hepatosplenomegaly on exam Hepatitis panel ordered was negative Plan: Monitor with morning labs Close outpatient follow-up, liver function enzyme labs #Hypertension Likely secondary to acute withdrawal status Patient has no history of hypertension, does not take any antihypertensives at home Presented to the ED with systolic in 130s and diastolic in the 110s Remains hypertensive on 07/09; will monitor and consider discharging with antihypertensive Plan: Will continue to monitor Patient not interested in antihypertensives as he states that he is only hypertensive when he is drinking Patient could benefit from close PCP follow-up for hypertension Medical Management: Lines: PIV Diet: Regular Bowel: Senna as needed GI prophylaxis: Not needed DVT prophylaxis: Heparin subcu Dispo: Monitoring for withdrawal symptoms, on CIWA protocol Code: Full Patient seen and assessed with attending Dr. Muller and senior resident Dr. Dimitry Hernandes, PGY-1 Attending Provider Attestation/Addendum I attest that I was physically present for the evaluation, physical examination, lab and imaging review of the patient with the residents. I discussed the case with the residents and agree with the findings and plans of care as documented above. Reta Muller MD
[2024-09-10 16:00] VITALS: BP 155/98; PULSE 85; PULSE 88; RESP 16; TEMP 36.7; O2SAT 99
[2024-09-10 20:00] VITALS: BP 153/87; PULSE 109; PULSE 72; RESP 16; TEMP 36.2; O2SAT 99
[2024-09-10] MEDS: HEPARIN SOD INJ 5000 UNIT/ML VIAL SC (20:40)
[2024-09-11] VITALS: BP 134/87; PULSE 68; PULSE 71; RESP 13; TEMP 36.9; O2SAT 98
[2024-09-11 04:00] VITALS: BP 120/77; PULSE 63; PULSE 64; RESP 16; TEMP 36.3; O2SAT 99
[2024-09-11 05:51] LABS: Basophils # (Auto) 0.1 Thou/mm3 (0.0-0.2); Basophils % (Auto) 1 % (0-2.5); Eosinophils # (Auto) 0.4 Thou/mm3 (0.0-0.5); Eosinophils % (Auto) 5 % (0-10); Hematocrit 45.6 % (41.0-53.0); Immature Granulocytes % (Auto) 0 % (0-0); Immature Granulocytes Auto 0.02 Thou/mm3 (0.00-0.00); Lymphocytes # (Auto) 1.5 Thou/mm3 (1.0-4.8); Lymphocytes % (Auto) 19 % (10-50); Mean Corpuscular HGB Conc 35.1 g/dl (31.0-37.0); Mean Corpuscular Hemoglobin 31.1 pg (25.0-35.0); Mean Corpuscular Volume 89 fL (80-100); Monocytes # (Auto) 0.7 Thou/mm3 (0.0-0.8); Monocytes % (Auto) 9 % (0-12); Neutrophils # (Auto) 5.4 Thou/mm3 (1.8-7.7); Neutrophils % (Auto) 66 % (37-80); Nucleated Red Blood Cell % 0 /100 WBC (0); Platelet Count 211 Thou/mm3 (140-440); RDW Standard Deviation 41.5 fL (35.1-43.9); Red Blood Count 5.14 Miln/mm3 (4.50-5.90); White Blood Count 8.1 Thou/mm3 (3.8-10.6)
[2024-09-11 06:42] LABS: Alanine Aminotransferase 501 U/L (10-49); Albumin, Serum 4.7 gm/dL (3.5-5.0); Albumin/Globulin Ratio 1.6 (1.2-2.2); Alkaline Phosphatase 111 U/L (46-116); Anion Gap 8 (7-16); Aspartate Amino Transferase 394 U/L (0-34); BUN/Creatinine Ratio 16 Ratio (12-20); Bilirubin,Total 1.4 mg/dL (0.3-1.2); Blood Urea Nitrogen 14 mg/dL (9-23); Calcium 9.7 mg/dL (8.3-10.6); Calcium (Corrected) 9.7 mg/dL (8.5-10.1); Carbon Dioxide 25.2 mMol/L (20.0-31.0); Chloride 105 mMol/L (98-107); Creatinine (Component) 0.9 mg/dL (0.6-1.3); Estimated Creatinine Clearance 142.3 mL/min (>60); Globulin 2.9 gm/dL (2.3-3.5); Glucose 98 mg/dL (74-106); Osmolality,Calculated 276 (275-295); Potassium 3.9 mMol/L (3.4-5.1); Sodium 138 mMol/L (136-145); Total Protein 7.6 gm/dL (5.7-8.2); eGFR > 60 See Note
[2024-09-11] MEDS: LORazepam 0.5 MG TABLET PO ×2 (07:16→13:12)
[2024-09-11 07:37] VITALS: BP 143/86; PULSE 75; RESP 16; TEMP 36.2; O2SAT 95
[2024-09-11 08:00] VITALS: PULSE 74
[2024-09-11] MEDS: FOLIC ACID 1 MG TABLET PO (08:42)
[2024-09-11] MEDS: THIAMINE 100 MG TABLET PO (08:42)
[2024-09-11] MEDS: HEPARIN SOD INJ 5000 UNIT/ML VIAL SC (08:42)
[2024-09-11] MEDS: GABAPENTIN 100 MG CAPSULE 300 MG PO (08:42)
[2024-09-11 12:00] VITALS: BP 136/77; PULSE 78; PULSE 82; RESP 15; TEMP 36.2; O2SAT 96
--- NOTE | 2024-09-11 14:15 | ESDS_ITS ---
<Statement entered by Jose Manuel Moraes MD - 09/12/24 06:27> I discussed with and supervised the product management intern physician involved in the care of this patient. Patient assessment and plan was discussed with entire medicine team, including my attending. I agree with the assessment and plan as documented by product management intern doctor. Patient care was discussed with my attending physician Dr. Gaby Moraes, PGY-2 Planned Discharge Date 09/11/24 DS: Providers Provider Date of admission: 09/08/24 08:38 Primary care physician: Sameer Menchaca PA-C Admitting Provider: Reta Muller MD Attending Provider on Admission: Reta Muller MD Attending Provider on DC: Anton Hernandes MD Discharging Provider: Anton Hernandes MD DS: Diagnosis Problem List Completed Was Problem List Reviewed/Reconciled?: Yes Hospital Course Hospital Course Hospital course: 29-year-old male with past medical history of alcohol use disorder presented to the ED on 09/08 after he started developing shakiness, sweating and bilious vomiting. In the ED, patient was hypertensive, tachycardic, tachypneic and CIWA score at that time was 12. Patient was admitted for alcohol withdrawal symptoms and CIWA protocol was initiated. During hospitalization, patient had CIWA scores ranging from 0-7 and received p.o. Ativan which suppressed the withdrawal symptoms which were mostly just anxiety and elevated blood pressure. Patient never experienced any diaphoresis, tremulousness, auditory or visual hallucinations and/or agitation. Patient is liver enzymes did uptitrate but this is expected secondary to alcohol use disorder. Patient generally felt well after the third day of admission and he will be discharged with the following strict instructions. Please take Gabapentin 300mg at night, as needed for withdrawal symptoms Please follow-up with your PCP within 1-2 weeks and ask for a repeat liver function lab If you develop shortness of breath, chest pain, experience hallucinations, excessive sweating or trembling - please come back to the ED immediately. Hospital Diagnosis: #Alcohol withdrawal #Alcohol use disorder #Elevated liver enzymes, uptrending #Metabolic dysfunction-associated steatotic liver disease (MASLD) #Hypertension Anton Hernandes, PGY-1 Status at Discharge Overall status at discharge: patient is progressing back to baseline Time Spent with Patient Time attestation: Total time spent providing and/or coordinating discharge services: 45 minutes Time spent: Greater than 30 minutes Exam Vital Signs Temp Pulse Resp BP Pulse Ox O2 Del Method FiO2 97.2 F 78 15 136/77 H 96 Room Air 98 09/11/24 12:00 09/11/24 12:00 09/11/24 12:00 09/11/24 12:00 09/11/24 12:00 09/11/24 12:00 09/09/24 08:00 Narrative Exam Physical Exam: GENERAL: Awake, answering questions appropriately, appears stated age, no jaundice HEENT: NC/AT. Moist mucosa. PERRLA/EOMI. No scleral icterus CARDIO: Heart RRR, no obvious murmurs, no JVD. PULM: No coughing or visible SOB. Lungs CTA B/L. GI: Abdomen soft, NT/ND, +BS. SKIN/MSK/EXT: No asterixis. No wounds/discoloration/rashes/edema/amputations. +Pedal pulses present B/L. NEURO: Oriented x3, Moves extremities x4, no focal neurological deficits Discharge Plan Plan Patient Disposition: HOME (Self Care) Care Plan Goals: Please take Gabapentin 300mg at night, as needed for withdrawal symptoms Please follow-up with your PCP within 1-2 weeks and ask for a repeat liver function lab If you develop shortness of breath, chest pain, experience hallucinations, excessive sweating or trembling - please come back to the ED immediately. Prescriptions/Referrals Prescriptions/Med Rec: New gabapentin 100 mg Capsule 300 mg PO HS PRN (Reason: withdrawal symptoms) Qty: 4 0RF Continued alum-mag hydroxide-simeth [Maalox Maximum Strength] 400-400-40 mg/5 mL suspension 10 ml PO TID PRN (Reason: indigestion) Qty: 355 0RF famotidine 20 mg tablet 20 mg PO QDAY Qty: 30 0RF Discontinued pantoprazole [Protonix] 40 mg tablet,delayed release (DR/EC) 40 mg PO QDAY Qty: 30 0RF chlordiazepoxide HCl 10 mg capsule 10 mg PO Q8H PRN (Reason: Alcohol withdraw) Qty: 30 0RF Referrals: Sameer Menchaca PA-C [Primary Care Provider] - Patient/Caregiver Discharge Instructions Education Materials: Social Drinking vs Problem Drinking, Alcohol Addiction, Alcohol Withdrawal: What to Expect, Addiction: Getting Help, Addiction Recovery Counseling Print Language: [place] Citizen Stand Alone Forms: [facility] Award Info., Patient Portal Info Letter, Work/Release Restrictions Discharge Order Discharge Orders: Discharge (Routine); Ordered 09/11/24 Ordered By: Anton Hernandes Quality Discharge Quality Measures VTE prophylaxis MD Attestestation MD Attestation I attest that I was physically present for the evaluation, physical examination, lab and imaging review of the patient with the residents. I discussed the case with the residents and agree with the findings and plans of care as documented above. Reta Muller MD
[2024-09-11 15:18] VITALS: BP 147/75; PULSE 92; RESP 17; TEMP 36.1; O2SAT 96
== END 2024-09-11 15:10 | disposition home or self-care (01) | DRG 775 ==
LOC: SERX 09:12 → SERHOLD 09:16 → S2NX 09-09 01:29
PROVIDERS: Internal Medicine; Admitting Provider Student in an Organized Health Care Education/Training Program; Emergency Provider Emergency Medicine; PCP Physician Assistant; Visit Provider Student in an Organized Health Care Education/Training Program
DX: F10.939 Alcohol use, unspecified with withdrawal, unspecified (principal); F12.90 Cannabis use, unspecified, uncomplicated; R25.2 Cramp and spasm; K76.9 Liver disease, unspecified; I10 Essential (primary) hypertension
CPT/HCPCS: 36415; 71045; 76700; 80053; 80074; 80307; 80320; 81001; 83735; 84100; 85025; 96361; 96374; 99285; J1643; J2060; J2405; J7030; A9270; G0480

== ENCOUNTER 2025-01-04 01:24 | Emergency (ER) | payer MEDICAID, SELFPAY ==
[2025-01-04 02:18] VITALS: PULSE 82; RESP 15; O2SAT 97; BMI 31.1
--- NOTE | 2025-01-04 02:31 | PD.EDNV ---
Nausea/Vomit./Diarrhea-RME/HPI General Chief complaint: Nausea/Vomiting/Diarrhea Stated complaint: N/V Time Seen by Provider: 01/04/25 02:25 Arrival date/time: 01/04/25 01:24 RME / HPI RME / HPI Narrative: Dr. Ureña?s Main ED Evaluation: 29yo male with a history of alcohol abuse, anxiety BIBA from home presents to the ED for a chief complaint of N/V/D. Patient states he's been drinking every day for the last 1 week. Patient states he woke up at 1999 and has since had persistent N/V/D. Patient reports feeling anxious about having withdrawals, so he called 911 to come in for evaluation. Patient denies any hematemesis, hematochezia, fever, chills, dysuria, chest pain, shortness of breath or any other associated symptoms. NKA. Related Data Previous Rx's ?Medication ?Instructions ?Recorded aluminum-mag hydroxide-simethicone 10 ml PO TID PRN indigestion #355 09/13/22 400 mg-400 mg-40 mg/5 mL oral susp mL (Maalox Maximum Strength) famotidine 20 mg tablet 20 mg PO QDAY #30 tabs 09/13/22 gabapentin 100 mg capsule 300 mg (3 x 100 mg) PO HS PRN 09/11/24 withdrawal symptoms #4 caps Allergies Allergy/AdvReac Type Severity Reaction Status Date / Time No Known Allergies Allergy Verified 07/06/24 18:04 Review of Systems Review of Systems Systems Reviewed: All systems reviewed, normal except as documented Past Medical History Past Medical History NEUROLOGIC: Negative Neurological Disorders CARDIAC: Negative Cardiac Disorders or Congestive Heart Failure RESPIRATORY: Negative Chronic Obstructive Pulmonary Disease (COPD) GASTROINTESTINAL: Negative Gastrointestinal Disorders GENITOURINARY: Negative Genitourinary Disorders or Renal Disease MUSCULOSKELETAL: Negative Musculoskeletal Disorders ENDOCRINE: Negative Endocrine Disorders, Diabetes Mellitus Type 1 or Diabetes Mellitus Type 2 HEMATOLOGIC: Negative Blood Disorders PSYCHO/SOCIAL: Positive Anxiety OTHER HISTORY: Negative Hospitalization, Autoimmune Disease, Down Syndrome, Developmental Delay, Falls, Blood Transfusions, Anesthesia Reactions, Chicken Pox, Measles, Mumps or Cancer Family History FAMILY HISTORY: Negative Family Psychiatric Problems, Family Respiratory Disorders, Family Cardiac Disorders, Family Gastrointestinal Problems, Family Cancer or Family Surgery Social History SMOKING STATUS: Former smoker SECOND HAND EXPOSURE: No SUBSTANCE USE: does not use ED Exam Narrative Physical exam: GENERAL APPEARANCE: alert and oriented x 4, well-developed, well-nourished, slightly tremulous, no acute distress VITALS: All vitals were reviewed and the pulse ox is % on room air, which is normal according to my interpretation. HEENT: Normocephalic, atraumatic; pupils equal, round, reactive to light; EOMI; mucous membranes pink, moist; oropharynx clear NECK: Supple LUNGS: CTABL; no wheezes, no rales, no rhonchi HEART: Regular rate, regular rhythm; normal S1, S2; no murmurs ABDOMEN: non distended; normal BS; soft, no tenderness, no guarding, no rebound; no masses, no organomegaly, no hernia BACK: no CVA tenderness EXTREMITIES: atraumatic; no edema NEUROLOGIC: awake; alert and oriented x4; cranial nerves II-XII grossly intact; no focal sensory or motor deficits PSYCHIATRIC: anxious mood and affect SKIN: warm, slightly diaphoretic, normal color; no rashes Course Quality Measures none Orders Category Date Time Status Digital Specialist NOW Care 01/04/25 02:35 Completed EKG (ED ONLY) *Do not use* NOW Care 01/04/25 02:35 Completed EKG (ED Only) Stat Exams 01/04/25 02:35 Draft Alcohol, Blood Medical Stat Lab 01/04/25 02:53 Completed CBC Stat Lab 01/04/25 02:53 Completed Comprehensive Metabolic Panel Stat Lab 01/04/25 02:53 Completed Lipase Stat Lab 01/04/25 02:53 Completed Magnesium Stat Lab 01/04/25 02:53 Completed LORazepam [Ativan Inj] Med 01/04/25 02:34 Discontinued 1 mg IVP X1 ONE Sodium Chloride 0.9% 1000 ml [Ns] 1,000 ml Med 01/04/25 02:34 Discontinued IV 999 mls/hr Reevaluation(s) Reevaluation #1: Patient is tolerating PO fluids. Patient is stable to be discharged home. Time: 04:54 Vital Signs Vital signs: Vital Signs Temperature 98.8 F 01/04/25 03:02 Pulse Rate 70 01/04/25 03:02 Respiratory Rate 18 01/04/25 03:02 Blood Pressure 164/86 H 01/04/25 03:02 Pulse Oximetry (%) 98 01/04/25 03:02 Oxygen Delivery Method Room Air 01/04/25 03:02 Nausea/Vomiting/Diarrhea MDM Narrative MDM Narrative:: Scribe Attestation: 01/04/25 Paradise Warren am scribing for and in the presence of Dr. Ureña. Patient data External records reviewed:: [facility] previous records (Per chart review, patient was admitted here on 09/08/24 for alcohol withdrawal.) Clinical information provided by:: patient Social determinants that could affect healthcare access:: alcohol use Patient has the following chronic illnesses:: none How is presenting disease/condition affected by chronic disease/condition?: no chronic disease Evaluation data The following diagnostics were reviewed and interpreted by me:: lab results and EKG tracing(s) Lab and/or radiology exams considered but not ordered:: none Interpretation Summary: WBC 11.7, CMP normal, Blood Alcohol negative. EKG done at 0259, NSR, rate of 69, normal intervals, normal axis, no acute ST-T wave changes, according to my interpretation. Medications / Prescriptions Medications / Prescriptions considered but not ordered:: none Medication administrations:: Medication Administration History Discontinued Medications Sodium Chloride (Ns) 1,000 mls @ 999 mls/hr IV .Q1H1M ONE Stop: 01/04/25 03:34 Last Infusion: 01/04/25 04:05 Dose: Infused Documented By: Admin: 01/04/25 03:04 Dose: 999 mls/hr Documented By: LYDIA Lorazepam (Lorazepam 2 Mg/Ml Vial) 1 mg IVP X1 ONE Stop: 01/04/25 02:35 Last Admin: 01/04/25 03:04 Dose: 1 mg Documented By: LYDIA see above Consultations Consultation(s) initiated? (list below): No Diagnosis Nausea Differential Diagnosis: gastroenteritis and other (alcohol abuse, alcohol withdrawal) Most likely diagnosis given after review of the tests above:: see clinical impression below Admission Indicated Admission indicated?: not indicated Admission Request Was there a request for admission?: No Disposition Plan Disposition Plan: Discharge Discharge Attestation Discharge Attestation: The patient and all family members were given an opportunity to ask questions and understood the discharge instructions. Discharge instructions specifically effects, indications for sooner follow up or return to the emergency department, and the expected course of current diagnosis. Patient condition: Stable Discharge Plan Plan Patient Disposition: HOME (Self Care) Prescriptions/Referrals Prescriptions/Med Rec: No Action alum-mag hydroxide-simeth [Maalox Maximum Strength] 400-400-40 mg/5 mL suspension 10 ml PO TID PRN (Reason: indigestion) Qty: 355 0RF famotidine 20 mg tablet 20 mg PO QDAY Qty: 30 0RF gabapentin 100 mg Capsule 300 mg PO HS PRN (Reason: withdrawal symptoms) Qty: 4 0RF Referrals: No Primary/Family,Physician [Primary Care Provider] - In 1 week Problem List Clinical Impression: Vomiting, Alcohol abuse Patient/Caregiver Discharge Instructions Education Materials: ED Vomiting (Adult), ED Alcohol Abuse Print Language: Albanian Stand Alone Forms: [employer] Award Info., Patient Portal Info Letter
--- NOTE | 2025-01-04 02:35 | EKG_ITS ---
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
[2025-01-04 03:02] VITALS: BP 164/86; PULSE 70; RESP 18; TEMP 37.1; O2SAT 98
[2025-01-04] MEDS: LORazepam 2 MG/ML VIAL 1 MG IVP (03:04)
[2025-01-04] MEDS: SODIUM CHLORIDE 0.9% 1000 ML 1,000 ML 999 ML IV (03:04)
[2025-01-04 03:56] LABS: Basophils # (Auto) 0.1 Thou/mm3 (0.0-0.2); Basophils % (Auto) 1 % (0-2.5); Eosinophils # (Auto) 0.3 Thou/mm3 (0.0-0.5); Eosinophils % (Auto) 2 % (0-10); Hemoglobin 15.7 g/dL (13.5-16.0); Immature Granulocytes % (Auto) 0 % (0-0); Immature Granulocytes Auto 0.03 Thou/mm3 (0.00-0.00); Lymphocytes # (Auto) 1.2 Thou/mm3 (1.0-4.8); Lymphocytes % (Auto) 10 % (10-50); Mean Corpuscular HGB Conc 34.9 g/dl (31.0-37.0); Mean Corpuscular Hemoglobin 32.1 pg (25.0-35.0); Mean Corpuscular Volume 92 fL (80-100); Monocytes % (Auto) 8 % (0-12); Neutrophils # (Auto) 9.2 Thou/mm3 (1.8-7.7); Neutrophils % (Auto) 78 % (37-80); Nucleated Red Blood Cell % 0 /100 WBC (0); Platelet Count 248 Thou/mm3 (140-440); RDW Standard Deviation 46.5 fL (35.1-43.9); Red Blood Count 4.89 Miln/mm3 (4.50-5.90); White Blood Count 11.7 Thou/mm3 (3.8-10.6)
[2025-01-04 04:23] LABS: Alanine Aminotransferase 401 U/L (10-49); Albumin, Serum 4.6 gm/dL (3.5-5.0); Albumin/Globulin Ratio 1.6 (1.2-2.2); Alcohol, Blood Medical < 3.0 mg/dL (0-10.0); Alkaline Phosphatase 131 U/L (46-116); Anion Gap 12 (7-16); BUN/Creatinine Ratio 9 Ratio (12-20); Bilirubin,Total 0.8 mg/dL (0.3-1.2); Blood Urea Nitrogen 8 mg/dL (9-23); Calcium 9.6 mg/dL (8.3-10.6); Calcium (Corrected) 9.6 mg/dL (8.5-10.1); Chloride 104 mMol/L (98-107); Creatinine (Component) 0.9 mg/dL (0.6-1.3); Estimated Creatinine Clearance 146.7 mL/min (>60); Globulin 2.8 gm/dL (2.3-3.5); Glucose 121 mg/dL (74-106); Lipase 32 U/L (12-53); Magnesium 1.8 mg/dL (1.6-2.6); Osmolality,Calculated 284 (275-295); Potassium 4.2 mMol/L (3.4-5.1); Sodium 143 mMol/L (136-145); Total Protein 7.4 gm/dL (5.7-8.2); eGFR > 60 See Note
--- NOTE | 2025-01-04 04:45 | PC.NURSE ---
pt tolerated po challenge with no c/o N/V, pt given 8 oz of water and 4 oz of juice,
[2025-01-04 05:00] VITALS: BP 147/78; PULSE 73; RESP 14; TEMP 36.9; O2SAT 98
== END 2025-01-04 05:45 | disposition home or self-care (01) ==
PROVIDERS: Emergency Provider Emergency Medicine
DX: R11.2 Nausea with vomiting, unspecified (principal); R19.7 Diarrhea, unspecified
CPT/HCPCS: 36415; 80053; 80307; 80320; 83690; 83735; 85025; 93005; 96361; 96374; 99284; J2060; J7030; G0480

== ENCOUNTER 2025-03-22 04:37 | Emergency (ER) | payer OTHER, SELFPAY ==
[2025-03-22 04:38] VITALS: PULSE 76; RESP 16; O2SAT 99; BMI 29.2
[2025-03-22 04:44] VITALS: BP 142/70; PULSE 100; RESP 18; TEMP 36.5; O2SAT 95
--- NOTE | 2025-03-22 04:55 | XR_ITS ---
Examination: Abdomen sonogram, Limited Date and time of exam: March 22, 2025, 0727 hours Onset right upper abdominal pain beginning 2:00 AM this morning Technique: Real-time weathers scale transabdominal sonographic images of the upper abdomen obtained. Findings: Normal gallbladder. Normal common bile duct 0.3 cm Pancreatic head 2.8 cm Liver 18.6 cm fatty infiltration no focal liver lesions Normal hepatopedal portal venous flow Patent IVC IMPRESSION: Normal gallbladder Moderate hepatomegaly with fatty infiltration.
--- NOTE | 2025-03-22 04:55 | PD.EDRME ---
Rapid Medical Screening Exam RME Arrival date/time: 03/22/25 04:37 This is a case of 29-year-old male with no medical history came in in the emergency room due to right upper abdominal pain associated with nausea vomiting persistence of the symptoms this patient decided to sought consult here in the emergency room Chief Complaint: Abdominal Pain Time Seen by Provider: 03/22/25 04:46 Vital signs: Vital Signs Temperature 97.7 F 03/22/25 04:44 Pulse Rate 100 03/22/25 04:44 Respiratory Rate 18 03/22/25 04:44 Blood Pressure 142/70 H 03/22/25 04:44 Pulse Oximetry (%) 95 03/22/25 04:44 Oxygen Delivery Method Room Air 03/22/25 04:44
[2025-03-22 05:11] LABS: Basophils # (Auto) 0.1 Thou/mm3 (0.0-0.2); Basophils % (Auto) 1 % (0-2.5); Eosinophils # (Auto) 0.3 Thou/mm3 (0.0-0.5); Eosinophils % (Auto) 3 % (0-10); Hematocrit 45.9 % (41.0-53.0); Hemoglobin 16.2 g/dL (13.5-16.0); Immature Granulocytes Auto 0.03 Thou/mm3 (0.00-0.00); Lymphocytes # (Auto) 1.2 Thou/mm3 (1.0-4.8); Lymphocytes % (Auto) 13 % (10-50); Mean Corpuscular HGB Conc 35.3 g/dl (31.0-37.0); Mean Corpuscular Hemoglobin 32.7 pg (25.0-35.0); Mean Corpuscular Volume 93 fL (80-100); Monocytes # (Auto) 0.7 Thou/mm3 (0.0-0.8); Monocytes % (Auto) 8 % (0-12); Neutrophils # (Auto) 6.9 Thou/mm3 (1.8-7.7); Neutrophils % (Auto) 75 % (37-80); Nucleated Red Blood Cell # 0.00 Thou/mm3 (0.00-0.00); Nucleated Red Blood Cell % 0 /100 WBC (0); Platelet Count 202 Thou/mm3 (140-440); RDW Standard Deviation 46.2 fL (35.1-43.9); Red Blood Count 4.95 Miln/mm3 (4.50-5.90); White Blood Count 9.3 Thou/mm3 (3.8-10.6)
[2025-03-22 05:32] LABS: Alanine Aminotransferase 167 U/L (10-49); Albumin, Serum 4.0 gm/dL (3.5-5.0); Albumin/Globulin Ratio 1.3 (1.2-2.2); Alkaline Phosphatase 140 U/L (46-116); Anion Gap 12 (7-16); Aspartate Amino Transferase 144 U/L (0-34); BUN/Creatinine Ratio 5 Ratio (12-20); Bilirubin,Total 0.5 mg/dL (0.3-1.2); Blood Urea Nitrogen < 5 mg/dL (9-23); Calcium 9.3 mg/dL (8.3-10.6); Calcium (Corrected) 9.3 mg/dL (8.5-10.1); Carbon Dioxide 25.1 mMol/L (20.0-31.0); Chloride 107 mMol/L (98-107); Creatinine (Component) 1.0 mg/dL (0.6-1.3); Estimated Creatinine Clearance 128.4 mL/min (>60); Globulin 3.2 gm/dL (2.3-3.5); Glucose 136 mg/dL (74-106); Lipase 47 U/L (12-53); Osmolality,Calculated 286 (275-295); Potassium 3.5 mMol/L (3.4-5.1); Sodium 144 mMol/L (136-145); Total Protein 7.2 gm/dL (5.7-8.2); eGFR > 60 See Note
--- NOTE | 2025-03-22 06:39 | XR_ITS ---
Examination: CT abdomen and pelvis without contrast. Coronal 3-D reconstructions. Sagittal 2-D reconstructions. Date and time of exam:March 22, 2025, 0841 hours, comparison October 16, 2023. INDICATIONS: Right-sided flank pain beginning this morning. CTDI: vol (mGy): 8.62. DLP: (mGycm): 557. Technique: Axial images of the abdomen have been obtained, 3 mm slice thickness Intravenous contrast material has not been administered. Low dose protocols were performed. One or more of the following dose reduction techniques were used; automated exposure control, adjustment of the mA and/or KV according to patient size, use of iterative reconstruction technique. Findings: Diffuse fatty infiltration throughout the liver, no focal liver or splenic lesions No gallstones. No pancreatic or adrenal mass. No renal or ureteral calculi, no hydronephrosis, no perinephric stranding Aorta normal size. No bowel obstruction. Normal appendix. Scattered colonic diverticulosis, no diverticulitis Normal seminal vesicles. No prostatomegaly Contracted urinary bladder. The osseous structures are intact. IMPRESSION: No renal or ureteral calculi. No hydronephrosis No perinephric stranding. Normal appendix. No bowel obstruction diverticulitis or free air.
[2025-03-22 06:52] LABS: Collection Type, Urine Clean Catch
[2025-03-22 07:15] LABS: Amorphous Crystals,Urine Present (Absent); Bacteria,Urine Rare; Bilirubin,Urine Negative (Negative); Blood,Urine Negative (Negative); Clarity,Urine Clear (Clear/Hazy); Color,Urine Lt-Yellow (Lt Yel-Yel); Glucose, Urine Negative (Negative); Ketones,Urine Negative (Negative); Leukocyte Esterase,Urine Negative (Negative); Nitrite,Urine Negative (Negative); PH,Urine 7.5 (5.0-7.0); Protein,Urine Negative (Neg - Trace); RBC,Urine 2 /hpf (0-3); Specific Gravity,Urine 1.012 (1.001-1.035); Squamous Epithelial Cell,Urine < 1 /hpf (0-5); Urobilinogen,Urine 3.0 mg/dL (0.0-1.0); WBC,Urine 3 /hpf (0-5)
--- NOTE | 2025-03-22 09:15 | PD.EDABDPN ---
ED Abdominal Pain RME/HPI General Chief Complaint: Abdominal Pain Stated complaint: ABD PAIN Time seen by provider: 03/22/25 04:46 Arrival date/time: 03/22/25 04:37 29-year-old male who admits to alcohol abuse on daily basis presents to the emergency department of complaints of acute onset of right upper abdominal pain patient reports the pain started after vomiting Limitations: no limitations RME / HPI RME / HPI narrative: 03/22/25 04:37 This is a case of 29-year-old male with no medical history came in in the emergency room due to right upper abdominal pain associated with nausea vomiting persistence of the symptoms this patient decided to sought consult here in the emergency room Related Data Previous Rx's ?Medication ?Instructions ?Recorded aluminum-mag hydroxide-simethicone 10 ml PO TID PRN indigestion #355 09/13/22 400 mg-400 mg-40 mg/5 mL oral susp mL (Maalox Maximum Strength) famotidine 20 mg tablet 20 mg PO QDAY #30 tabs 09/13/22 gabapentin 100 mg capsule 300 mg (3 x 100 mg) PO HS PRN 09/11/24 withdrawal symptoms #4 caps hydroxyzine HCl 50 mg tablet 50 mg PO TID PRN nausea and 03/22/25 vomiting #30 tabs ibuprofen 600 mg tablet 600 mg PO Q6H #30 tabs 03/22/25 ondansetron 4 mg disintegrating 4 mg PO Q8H PRN nausea and 03/22/25 tablet vomiting #10 tabs Allergies Allergy/AdvReac Type Severity Reaction Status Date / Time No Known Allergies Allergy Verified 07/06/24 18:04 Review of Systems Review of Systems Systems Reviewed: All systems reviewed, normal except as documented Constitutional Constitutional: Reports system reviewed and no additional complaints, except as documented, Denies fever(s) and Denies headache(s) Eyes Eyes: Reports system reviewed and no additional complaints, except as documented and Denies blurry vision ENT Ears, Nose, Mouth, and Throat: Reports system reviewed and no additional complaints, except as documented, Denies headache(s), Denies nasal congestion and Denies nasal discharge Cardiovascular Cardiovascular: Reports system reviewed and no additional complaints, except as documented, Denies chest pain and Denies dyspnea Respiratory Respiratory: Reports system reviewed and no additional complaints, except as documented, Denies chest congestion, Denies cough and Denies dyspnea Gastrointestinal Gastrointestinal: Reports system reviewed and no additional complaints, except as documented, Reports abdominal pain, Reports loose stools and Reports nausea Integumentary/Breasts Skin/Breast: Reports system reviewed and no additional complaints, except as documented and Denies rash Neurologic Neurologic: Reports system reviewed and no additional complaints, except as documented, Reports as per HPI and Denies headache(s) Past Medical History Past Medical History NEUROLOGIC: Negative Neurological Disorders CARDIAC: Negative Cardiac Disorders or Congestive Heart Failure RESPIRATORY: Negative Chronic Obstructive Pulmonary Disease (COPD) GASTROINTESTINAL: Negative Gastrointestinal Disorders GENITOURINARY: Negative Genitourinary Disorders or Renal Disease MUSCULOSKELETAL: Negative Musculoskeletal Disorders ENDOCRINE: Negative Endocrine Disorders, Diabetes Mellitus Type 1 or Diabetes Mellitus Type 2 HEMATOLOGIC: Negative Blood Disorders PSYCHO/SOCIAL: Positive Anxiety OTHER HISTORY: Negative Hospitalization, Autoimmune Disease, Down Syndrome, Developmental Delay, Falls, Blood Transfusions, Anesthesia Reactions, Chicken Pox, Measles, Mumps or Cancer Family History FAMILY HISTORY: Negative Family Psychiatric Problems, Family Respiratory Disorders, Family Cardiac Disorders, Family Gastrointestinal Problems, Family Cancer or Family Surgery Social History SMOKING STATUS: Current some day smoker SECOND HAND EXPOSURE: No SUBSTANCE USE: does not use ED Exam General Limitations: Present no limitations General appearance: Present alert and in no apparent distress Head Head exam: Present atraumatic Eye Eye exam: Present normal appearance, PERRL and EOMI ENT ENT exam: Present normal exam, normal oropharynx and mucous membranes moist Neck Neck exam: Present normal inspection, full ROM and trachea midline Chest Chest inspection: Present normal inspection and symmetric chest wall rise Respiratory Respiratory exam: Present normal lung sounds bilaterally Cardiovascular Cardiovascular exam: Present regular rate, normal rhythm and normal heart sounds Abdominal Exam Abdominal exam: Present soft and normal bowel sounds Extremities Exam Extremities exam: Present normal inspection and full ROM Back Exam Back exam: Present normal inspection and full ROM Neurological Exam Neurological exam: Present alert, oriented X3 and CN II-XII intact Psychiatric Psychiatric exam: Present normal affect and normal mood Skin Skin exam: Present warm, dry, intact and normal color Course Quality Measures none Orders Category Date Time Status CT abdomen pelvis wo con Stat Exams 03/22/25 06:39 Completed US gall bladder Stat Exams 03/22/25 04:55 Completed CBC Stat Lab 03/22/25 05:01 Completed Comprehensive Metabolic Panel Stat Lab 03/22/25 05:01 Completed Lipase Stat Lab 03/22/25 05:01 Completed Urinalysis Stat Lab 03/22/25 06:30 Completed Vital Signs Vital signs: Vital Signs Temperature 97.7 F 03/22/25 04:44 Pulse Rate 100 03/22/25 04:44 Respiratory Rate 18 03/22/25 04:44 Blood Pressure 142/70 H 03/22/25 04:44 Pulse Oximetry (%) 95 03/22/25 04:44 Oxygen Delivery Method Room Air 03/22/25 04:44 O2 saturation 95% on room air with normal limits Abdominal Pain MDM MDM Narrative MDM Narrative:: 29-year-old male who admits to alcohol abuse on daily basis presents to the emergency department of complaints of acute onset of right upper abdominal pain patient reports the pain started after vomiting At time my evaluation patient's already had lab work ultrasound and CT scan completed Lab work unremarkable CT scan unremarkable Patient's liver enzymes are chronically elevated most likely due to alcohol and a fatty liver Patient discharged home in no distress to follow-up with primary care doctor in the next 24 to 48 hours and for any worsening symptoms to return to the ER immediately Patient data External records reviewed:: [facility] previous records Clinical information provided by:: patient Social determinants that could affect healthcare access:: alcohol use Patient has the following chronic illnesses:: See history How is presenting disease/condition affected by chronic disease/condition?: caused by Evaluation data The following diagnostics were reviewed and interpreted by me:: lab results and radiology exam(s) Lab and/or radiology exams considered but not ordered:: Labs radiology obtained Interpretation Summary: Reviewed by me Medications / Prescriptions Medications or Prescriptions considered but not ordered:: Given Medication administrations:: Given Consultations Consultation(s) initiated? (list below): No Diagnosis Differential diagnosis abdominal pain: abdominal pain, acute appendicitis, pancreatitis and small bowel obstruction Most likely diagnosis given after review of the tests above:: Abdominal pain Admission Indicated Admission indicated?: not indicated Admission Request Was there a request for admission?: No Disposition Plan Disposition Plan: Discharge Discharge Attestation Discharge Attestation: The patient and all family members were given an opportunity to ask questions and understood the discharge instructions. Discharge instructions specifically effects, indications for sooner follow up or return to the emergency department, and the expected course of current diagnosis. Patient condition: Stable Discharge Plan Plan Patient Disposition: HOME (Self Care) Discharge Disposition comment: Stable Prescriptions/Referrals Prescriptions/Med Rec: New hydroxyzine HCl 50 mg tablet 50 mg PO TID PRN (Reason: nausea and vomiting) Qty: 30 0RF ibuprofen 600 mg tablet 600 mg PO Q6H Qty: 30 0RF ondansetron 4 mg tablet,disintegrating 4 mg PO Q8H PRN (Reason: nausea and vomiting) Qty: 10 0RF No Action alum-mag hydroxide-simeth [Maalox Maximum Strength] 400-400-40 mg/5 mL suspension 10 ml PO TID PRN (Reason: indigestion) Qty: 355 0RF famotidine 20 mg tablet 20 mg PO QDAY Qty: 30 0RF gabapentin 100 mg Capsule 300 mg PO HS PRN (Reason: withdrawal symptoms) Qty: 4 0RF Referrals: No Primary/Family,Physician [Primary Care Provider] - 03/23/25 Problem List Clinical Impression: Abdominal muscle strain, Nausea & vomiting, Alcohol abuse Patient/Caregiver Discharge Instructions Education Materials: Alcohol Addiction Additional Instructions: Please follow up with your primary care doctor in the next 24-48hrs for any worsening symptoms return here immediately Print Language: Chinese Stand Alone Forms: [employer] Award Info., Work/School Release, Patient Portal Info Letter 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 perez
== END 2025-03-22 09:32 | disposition home or self-care (01) ==
PROVIDERS: Nurse Practitioner Family; Emergency Provider Emergency Medicine
DX: S39.011A Strain of muscle, fascia and tendon of abdomen, initial encounter (principal); F10.20 Alcohol dependence, uncomplicated; R11.2 Nausea with vomiting, unspecified; K76.0 Fatty (change of) liver, not elsewhere classified; X58.XXXA Exposure to other specified factors, initial encounter
CPT/HCPCS: 36415; 74176; 76705; 80053; 81001; 83690; 85025; 99284

== ENCOUNTER 2025-03-27 03:29 | Emergency (ER) | payer OTHER, MEDICAID, SELFPAY ==
[2025-03-27 03:34] VITALS: BP 156/89; RESP 20; TEMP 37.3; O2SAT 99
[2025-03-27 03:35] VITALS: BMI 29.2
[2025-03-27 03:39] VITALS: PULSE 92; RESP 22; O2SAT 98
--- NOTE | 2025-03-27 05:30 | PD.EDRME ---
Rapid Medical Screening Exam E Arrival date/time: 03/27/25 03:29 This is a case of 29-year-old male who has a history of alcohol abuse came in in the emergency room due to abdominal pain nausea vomiting for 4 days unable to eat worsening of the symptoms now with numbness and tingling sensation in both hands and feet thus patient decided to sought consult here in the emergency room patient was drinking for 4 days approximately 5-6 beers a day Chief Complaint: Alcohol Vital signs: Vital Signs Temperature 99.1 F 03/27/25 03:34 Respiratory Rate 20 03/27/25 03:34 Blood Pressure 156/89 H 03/27/25 03:34 Pulse Oximetry (%) 99 03/27/25 03:34 Oxygen Delivery Method Room Air 03/27/25 03:34
== END 2025-03-27 05:38 | disposition left against medical advice (07) ==
PROVIDERS: Emergency Provider Emergency Medicine
DX: R10.9 Unspecified abdominal pain (principal); R11.2 Nausea with vomiting, unspecified; R20.0 Anesthesia of skin; R20.2 Paresthesia of skin; Z53.29 Procedure and treatment not carried out because of patient's decision for other reasons
CPT/HCPCS: 80053; 80307; 80320; 81001; 83605; 83615; 85025; 99281; G0480